=== PATIENT | female | born 1940 | race Caucasian/White ===

== ENCOUNTER → 2023-11-17 10:26 | Outpatient (REF) | payer SELFPAY ==
[2023-11-17 11:07] LABS: HDL Cholesterol 67 mg/dl; LDL Cholesterol, Calculated 52 mg/dl; Total Cholesterol 131 mg/dl (50-199); Triglyceride 61 mg/dl (10-149); Very Low Density Lipoprotein 12 mg/dl (0-30)
== END ==
LOC: OLABN 10:26
PROVIDERS: ATTENDING PHYSICIAN Student in an Organized Health Care Education/Training Program
DX: E78.5 Hyperlipidemia, unspecified (principal)
CPT/HCPCS: 36415; 80061

== ENCOUNTER → 2023-11-24 09:33 | Outpatient (REF) | payer OTHER, SELFPAY ==
[2023-11-24 10:17] LABS: % Basophils 0.8 % (0-2); % Eosinophils 3.8 % (0-6); % Immature Granulocytes 0.3 % (0-0.5); % Lymphocytes 25.3 % (20.5-51.1); % Monocytes 8.6 % (1.7-9.3); % Neutrophils 61.2 % (42.2-75.2); Absolute Eosinophils 0.1 10^3/uL (0-0.7); Absolute Lymphocytes 0.9 10^3/uL (1.2-3.4); Absolute Monocytes 0.3 10^3/uL (0.1-0.6); Absolute Neutrophils 2.3 10^3/uL (1.4-6.5); Hematocrit 36.3 % (37.0-47.0); Hemoglobin 12.3 g/dL (12.0-16.0); Mean Corp Hgb Conc. 33.9 g/dL (33.0-37.0); Mean Corpuscular Hgb 30.5 pg (27.0-31.0); Mean Corpuscular Volume 90.1 fL (81.0-99.0); Nucleated Red Blood Cells % 0 %; Platelet Count 177 10^3/uL (130-400); Red Blood Cell Count 4.03 10^6/uL (4.20-5.40); Red Cell Dist. Width 13.2 % (11.5-14.5); White Blood Cell Count 3.7 10^3/uL (4.8-10.8)
[2023-11-24 11:29] LABS: ALT (SGPT) 20 U/L (0-35); AST (SGOT) 25 U/L (14-36); Albumin 3.7 g/dl (3.5-5.0); Alkaline Phosphatase 89 U/L (38-126); Blood Urea Nitrogen 13 mg/dl (7-17); Calcium 9.1 mg/dl (8.4-10.2); Carbon Dioxide 29 mmol/L (22-30); Chloride 103 mmol/L (98-107); Glucose 99 mg/dl (70-99); Magnesium 2.4 mg/dl (1.6-2.3); Potassium 3.6 mmol/L (3.5-5.1); Sodium 138 mmol/L (135-145); Total Bilirubin 0.4 mg/dl (0.2-1.3); Total Protein 6.2 g/dl (6.3-8.2); eGFR > 60.00
[2023-11-24 12:20] LABS: Vitamin B12 274 pg/ml (239-931)
[2023-11-27 19:26] LABS: Vitamin B6 Results 11.1 nmol/L (20.0-125.0)
== END ==
LOC: OLABN 09:33
PROVIDERS: ATTENDING PHYSICIAN Student in an Organized Health Care Education/Training Program
DX: E52 Niacin deficiency [pellagra] (principal); I25.119 Atherosclerotic heart disease of native coronary artery with unspecified angina pectoris
CPT/HCPCS: 36415; 80053; 82607; 83735; 84207; 85025

== ENCOUNTER → 2023-12-22 11:30 | Outpatient (REF) | payer OTHER, SELFPAY ==
[2023-12-22 12:40] LABS: Blood Urea Nitrogen 17 mg/dl (7-17); Calcium 9.1 mg/dl (8.4-10.2); Carbon Dioxide 28 mmol/L (22-30); Chloride 103 mmol/L (98-107); Glucose 91 mg/dl (70-99); Potassium 4.1 mmol/L (3.5-5.1); Sodium 134 mmol/L (135-145); eGFR > 60.00
== END ==
LOC: OLABN 11:30
PROVIDERS: ATTENDING PHYSICIAN Student in an Organized Health Care Education/Training Program
DX: I1A.0 Resistant hypertension (principal)
CPT/HCPCS: 36415; 80048

== ENCOUNTER 2024-01-28 11:47 | Emergency (ER) | payer MEDICARE, MEDICAID, SELFPAY ==
[2024-01-28 11:48] VITALS: BP 171/85
--- NOTE | 2024-01-28 12:53 | CON.NEURO4 ---
Addendum entered and electronically signed by Suleman Wise MD 01/28/24 15:00:
I saw and evaluated the patient I reviewed the note by Melisa Alvarez and agree with the findings the following comments:
83-year-old woman with a past ministry of previous ischemic stroke producing left-sided weakness, hypertension, chronic macular degeneration, hyperlipidemia, peripheral vascular disease and peripheral neuropathy presented to hospital after finding
of stroke on brain MRI performed for workup of sudden onset hearing loss which occurred around 3 weeks ago.
Patient reports that around 3 weeks ago she had had sudden onset hearing loss or sound like she had a cracking of a tree branch that seem to be in both years and then her right-sided hearing improved but not the left side. Since then she has had
tinnitus in the left ear. She had evaluation by associate financial representative and ENT who had sent her for brain MRI. Patient reports having had hearing checked a couple months previously and seem to have very good hearing in both ears upwards of 95% function
bilaterally.
Patient denies any change in her baseline left-sided weakness from previous ischemic stroke, has had some slow speech, no new headaches. She has been compliant with aspirin with no bleeding issues or side effects. She denies any significant
cardiac history no recent chest pain dyspnea or palpitations
Neurologic examination shows unremarkable mental status, cranial nerves with grossly intact hearing to conversation, extraocular movements normal visual bello normal, smile symmetric no dysarthria.
Motor examination shows weakness and spasticity of the left arm and left leg.
MRI brain reviewed which shows an acute stroke in the right mati and an older more subacute appearing right parietal infarct.
Carotid ultrasound shows 50 to 69% stenosis of the left carotid artery and less than 50% stenosis on the right carotid artery
Assessment: I do suspect a possible vascular cause such as infarction of the cochlea or labyrinthine artery as cause of her sudden onset hearing loss.
Ischemic stroke in the mati could potentially produce hearing loss although the brain MRI supports that the stroke is most likely 7 days old or less, and her hearing problem started 3 weeks ago. He infarct of the mati appears minimally symptomatic
as well as the infarct of the right parietal lobe which appears more distant and greater than probably 2 weeks ago.
Etiology of infarcts is most suspicious for atheroembolic versus cardioembolic mechanism.
Recommendations
-Check lipid panel and hemoglobin A1c
-Continue atorvastatin 40 mg daily
-Placed on DAPT therapy with aspirin and Plavix for 3 weeks and then stop the aspirin after 3 weeks continue on clopidogrel indefinitely
-Discussed my concern that the hearing loss could have actually been caused by stroke to the hearing apparatus and that it may improve with time but may still have significant hearing loss and tinnitus moving forward
-Neurology follow-up as an outpatient in 4 to 6 weeks would obtain outpatient short-term cardiac monitoring to start as well as transthoracic echocardiogram
-Acceptable for discharge home from my perspective given the stroke to the brain is asymptomatic and patient with no new neurologic symptoms that would warrant hospitalization
Original Note:
Documented by User: Melisa Carrizales NP 01/28/24 14:22
Consultation - Neurology 4
-
CONSULTING PHYSICIAN: Rosio Wise MD
REFERRING PHYSICIAN: ER/Dr. Christina
DICTATED BY: ANNALISA Alcazar
DATE/TIME OF REQUEST: 01/28/24
DATE/TIME OF CONSULTATION: 01/28/24
Reason for Consultation: CVA
History of Present Illness:
This is an 83-year-old right-handed female who has presented to the hospital from [facility] with report of subacute vs acute CVA found on MRI brain imaging completed this morning due to acute onset left-sided hearing loss. Patient has a
history of CVA in February 2020 with residual left-sided weakness. She reports waking up from sleep to use the bathroom on 03/01/2020 and she was unable to move her left side. She was unable to get to her phone and her son found her hours later. She was
not a candidate for thrombolytic/intervention. Since then her LUE has been weak/spastic as well as weakness in her LLE. She moved to [facility] at that time and uses a wheelchair for ambulation but she can do short distance transfers. She has
been taking aspirin 81mg daily since then.
Three weeks ago on 01/08/24 she reports sitting chewing on a jolly rancher when suddenly she heard what sounded like a large branch break off of a tree and then she couldn't hear anything in either ear. She started hitting her ears with her hand and
reports that her right side hearing returned but not her left. Since then she reports hearing a ringing sound which has now turned into a constant buzzing sound in her left ear. She also reports feeling lethargic and having slow speech since then.
She reports that she had her hearing checked several months before this event and her hearing was 98% in both ears. She was evaluated by an associate financial representative and ENT since this acute hearing loss, who couldn't find anything wrong with the ear itself, and
sent her for MRI brain imaging for further evaluation. She had the MRI brain completed this morning which demonstrates an acute/subacute right pontine and right parietal ischemic infarct, prompting her to be sent to the ER for further evaluation.
Patient reports a mild pressure headache, fatigue, and slow speech. She denies any dizziness, new vision changes, numbness, new weakness, nausea, chest pain, palpitations. She reports chronic difficulty swallowing pills only and shortness of breath
since she was 49 years old. 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 She denies any recent fevers or illnesses and has not missed any doses of her aspirin.
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
Surgical History: breast cyst removed, b/l cataract removal
Family History: Reviewed and noncontributory.
Social History: Former smoker. Denies alcohol and illicit drug use.
Allergies: No known allergies.
Home Medications: See below.
Review of Symptoms:
Patient denies any fever, chest pain, shortness of breath, GI or symptoms.
�Per the HPI.�All systems are reviewed negative except above.
Physical Exam:
The patient is afebrile, abdomen is nondistended, breathing is unlabored, skin is warm and dry, no edema.
NIH Stroke Scale:
I performed the NIH stroke scale on the patient on 01/28/24 at 1315. The patient scored 6 points on the NIH stroke scale assessment, which were assigned as follows: See below.
Neurologic Examination:
The patient is awake, alert and oriented x 3. She is able to follow commands and answer questions appropriately. There is no aphasia or dysarthria. On cranial nerve assessment, pupils are 3 mm bilateral, round and reactive to light and
accommodation. Visual bello are severely reduced in all quadrants bilaterally at baseline. Extraocular movements are intact. Facial sensations are intact and bilaterally symmetrical, there is a slight left facial droop. Hearing is absent to finger
rub in the left ear only. Tongue palate and uvula are midline. Sternocleidomastoid strengths are reduced on the left. Motor strengths are 5/5 right upper, 3/5 left upper, 5/5 right lower, and 4+/5 left lower extremities on medical research [place]
scale. There is drift in the LUE only. LUE is contracted. No involuntary movement noted. Deep tendon reflexes are 2+ right upper and lower, and 3+ left upper and lower extremities and Babinski is absent bilaterally. Sensations of temperature and
vibration are mildly reduced in distal bilateral lower extremities. There was no extinction noted on double simultaneous stimulation. Coordination is intact by finger to nose on the right, NOEMI LUE.
Lab Results: See below.
Neuro Imaging:
1. MRI Brain 01/28/24: There is a small focus of acute to subacute infarction in the right paramedian mati. Slightly more inferiorly within the right paramedian mati, there is a focal area of CSF signal intensity, which is likely from old infarction.
Small focal area of slightly increased diffusion-weighted signal and questionable minimal decreased ADC signal in the right parietal postcentral gyrus, of moderate suspicion for a small focus of acute to subacute infarction. Areas of old infarction
as described. Moderate diffuse atrophy. Mild to moderate T2 and FLAIR white matter hyperintensities, commonly seen with aging and usually attributed to small vessel ischemic disease. No evidence for vestibular schwannoma. No evidence for
cerebellopontine angle mass. There is no focal area of abnormal enhancement.
Differentials for the patient's presentation include:
1. Subacute/acute right pontine and right parietal ischemic infarct on brain imaging looks recent, at least in the past 10 days and does not explain abrupt hearing loss taking place 3 weeks ago.
2. Possible ischemic stroke to the hearing center of the left ear that cannot be visualized on MRI brain producing hearing change three weeks ago.
3. Old right pontine, left cerebellar, and left lateral ventricle ischemic stroke with residual left-sided weakness.
4. Prediabetes.
Patient has the following risk factors for their symptoms: HTN, HLD, age, hx stroke
IV Tenecteplase/IAT candidacy: Not a candidate due to outside of time window.
Recommendations:
-Initiate DAPT with aspirin 81mg and Plavix 75mg daily for 21 days. After 21 days, discontinue aspirin and continue Plavix 75mg daily only, indefinitely, as this new stroke occurred while on aspirin.
-Goal normotension.
-Carotid ultrasound pending.
-TTE as an outpatient.
-Recommend extended cardiac monitoring as an outpatient.
-LDL goal <70. LDL is 64. Continue home atorvastatin 40mg daily as LDL is at goal.
-Goal normoglycemia, hbA1c is 6.1.
-Provide patient with a stroke education packet. NIHSS and neurological checks per unit guidelines.
-B12 level was 274 in October 2023, rechecking level. Would initiate cyanocobalamin 1000mg daily if level is still <400, patient has neuropathy.
-Patient should follow-up with Neurology as an outpatient, may see the SEWING MACHINE ADJUSTER or one of the physicians.
Discussed patient care with: Dr. Wise, the patient
Vital Signs and Labs
-
Vital Signs and Labs:
Vital Signs
Temp Pulse Resp BP Pulse Ox
97.7 F 70 14 149/85 100
01/28/24 11:48 01/28/24 13:15 01/28/24 13:15 01/28/24 13:03 01/28/24 13:15
Lab Results
01/28/24 13:13
01/28/24 13:13
Sodium 141 mmol/L (135-145) 01/28/24 13:13
Potassium 3.8 mmol/L (3.5-5.1) 01/28/24 13:13
BUN 10 mg/dl (7-17) 01/28/24 13:13
Glucose 116 mg/dl (70-99) H 01/28/24 13:13
Calcium 9.6 mg/dl (8.4-10.2) 01/28/24 13:13
NIH Stroke Score
Subsequent NIH Scale
Date of Subsequent NIH Scale: 01/28/24
Time of Subsequent NIH Scale: 13:15
NIH Stroke Score
Level of Consciousness: 0 - Alert
LOC Questions: 0-Answers both correctly
LOC Commands: 0-Performs both correctly
Best Horizontal Gaze: 0-Normal
Visual Bello: 3=Bilateral hemianopia (macular degeneration at baseline)
Facial Palsy: 1=Minor paralysis (baseline since 2019)
Motor - Right Arm: 0=No drift 10 seconds
Motor - Left Arm: 2=Partial vs. gravity (baseline since 2019)
Motor - Right Le-No drift 5 seconds
Motor - Left Le-No drift 5 seconds
Limb Ataxia: 0-Absent
Sensation: 0-Normal
Best Language: 0-No aphasia
Dysarthria: 0-Normal
Extinction and Inattention: 0-No abnormality
Total Score:: 6
Modified [place] (mRS) Score
Modified [place] Scale (mRS): No significant disability. Able to carry out usual activities.
Score: 1

Documented by User: Suleman Wise MD 01/28/24 14:53
NIH Stroke Score
NIH Stroke Score
Total Score:: 6
Modified [place] (mRS) Score
Score: 1
--- NOTE | 2024-01-28 12:53 | ED.GENMED ---
History of Present Illness
General
Chief Complaint: Abnormal Lab Value
Source: patient and records
Exam Limitations: none
Time Seen by Provider: 01/28/24 12:40
Nursing documentation reviewed up to this point in time: agreed with
Travel History
Have you had any contact with someone who has COVID-19?: No
Do you have any symptoms of coronavirus? Fever > 100 degrees, chills, cough, shortness of breath, sore throat, loss of taste or smell, muscle aches, or headache?: No
History of Present Illness
History of Present Illness:
83-year-old female with a past medical history of hypertension, CVA with residual left-sided weakness who presents to the emergency department from her long-term ([facility]) for evaluation after being found to have abnormal MRI. Patient
reports that while she was eating a gummy bear about 3 weeks ago she had 'a pop' in both of her ears and she said she had acute hearing loss in both ears. She says that she 'tapped on her ears' for a few minutes and she had return of hearing in the
right ear but persistent hearing loss in the left ear. For this reason she saw an ENT in the office (Dr. Ge) and she was ultimately ordered for an MRI as part of her workup. She had the MRI today and it showed a small area concerning for 'acute
to subacute infarction in the right paramedian mati.' She was directed to the emergency room to be assessed. Patient reports that she has had gradual word finding difficulties over the past few months but has had no acute change in her speech or
slurred speech. She denies any acute change in vision has had chronic visual issues related to macular degeneration. She has chronic weakness in the left side since stroke in 2021 but she denies any acute change in her strength either on the left
side over the right side. Denies any sensory changes. She says she has had mild headache intermittently over the past few weeks but denies any other specific complaints. Denies any chest pain or palpitations. No shortness of breath. No nausea
or vomiting. No other complaints.
Review of Systems
Review of Systems
All Other Systems: ROS reviewed and negative except as documented in HPI and ROS
Constitutional: Denies fever
EENT: Reports other (Hearing loss)
Respiratory: Denies trouble breathing
Cardiac: Denies chest pain or palpitations
ABD/GI: Denies abdominal pain, nausea or vomiting
: Denies flank pain
Musculoskeletal: Denies neck pain or back pain
Neurological: Reports headache, weakness (Chronic) and other (Subacute to chronic speech issues); Denies dizzy or numbness
Phy Exam
Physical Exam
Physical Exam:
General: Awake, alert, oriented x3; no acute distress
Head: Normocephalic, atraumatic
Eyes: Conjunctiva normal, EOMI, pupils equal round and reactive to light bilaterally
Throat: Airway intact, handling secretions
Neck: Trachea midline, supple without meningismus
Lungs: Clear to auscultation bilaterally, no wheezing, rales, rhonchi
Heart: Regular rate and rhythm, no murmurs, gallops, or rubs
Abd: Soft, non distended, nontender
Neuro: Cranial nerves intact 2 through 12, speech fluent with no dysarthria or aphasia, she is able to give good effort against gravity left upper and lower extremity, 4/5 strength proximally and distally; 5/5 strength right upper and lower
extremity; sensation intact in all extremities
Skin: no rash
Extremities: No edema in extremities, equal pulses in all extremities
Scores
NIH Stroke Score
Level of Consciousness: 0 - Alert
LOC Questions: 0-Answers both correctly
LOC Commands: 0-Performs both correctly
Best Horizontal Gaze: 0-Normal
Visual Bello: 0=Normal, no visual loss
Facial Palsy: 0=Normal, symmetrical
Motor - Right Arm: 0=No drift 10 seconds
Motor - Left Arm: 1=Drift < 10 seconds
Motor - Right Le-No drift 5 seconds
Motor - Left Le-Drift < 5 seconds
Limb Ataxia: 0-Absent
Sensation: 0-Normal
Best Language: 0-No aphasia
Dysarthria: 0-Normal
Extinction and Inattention: 0-No abnormality
Total Score:: 2
Thrombolytic Contraindication
Inclusion and Exclusion criteria reviewed: Yes
Reasons for NON-Tx with Thrombolytics ABSOLUTE Exclusions: Greater than 4.5 hrs from onset of sxs
Heart Failure Risk
Heart Failure Risk Score: Not Applicable
Heart Score for Chest Pain Patients
STEMI patient?: Not applicable
Withdrawal Assessment of Alcohol
Withdrawal Assessment Completed?: Not applicable
Course
Orders/Labs/Results
Orders:
Orders
01/28/24 12:43
Electrocardiogram (*1) Urgent
Reason for Study: TIA/Stroke
EKG- Treatment ONCE
01/28/24 12:44
US Carotid [US Cerebrovascular] Urgent
Comment:
Reason For Exam: CVA
01/28/24 12:54
Add On- LAB Routine
Tests Added?: Lipid panel, HbA1c
01/28/24 13:13
Cardiovascular Evaluation Urgent
Complete Blood Count/With Diff Urgent
Comprehensive Metabolic Panel Urgent
Ferritin Urgent
Comment: ADD ON
Folate Urgent
Comment: ADD ON
Glycohemoglobin (HgbA1c) Urgent
TSH Reflex To Free T4 Urgent
Comment: ADD ON
Vitamin B12 Urgent
Comment: ADD ON
01/28/24 14:06
Clopidogrel Bisulfate [Plavix] 300 mg PO NOW STA
01/28/24 14:20
Add On- LAB Routine
Tests Added?: folate, ferritin, TSH reflex, B12
01/28/24 14:21
Patient Education As Directed
Type: Stroke education packet
Abnormal Lab Results
01/28/24
13:13
MCHC 32.7 L g/dL
(33.0-37.0)
Lymphocytes % 17.4 L %
(20.5-51.1)
Glucose 116 H mg/dl
(70-99)
Hemoglobin A1c 6.1 H %
(4.0-5.6)
01/28/24 13:13
01/28/24 13:13
Vital Signs
Initial and Last Documented VS:
Initial Vital Signs
Temp Pulse Resp BP Pulse Ox
36.5 C 78 16 171/85 97
01/28/24 11:48 01/28/24 11:48 01/28/24 11:48 01/28/24 11:48 01/28/24 11:48
Last Documented Vital Signs
Temp Pulse Resp BP Pulse Ox
36.5 C 71 14 141/86 95
01/28/24 11:48 01/28/24 14:00 01/28/24 14:00 01/28/24 14:00 01/28/24 14:00
MDM/Problems Addressed
Differential Diagnosis Includes:
CVA
MDM/Problems Addressed:
83-year-old female presents for evaluation after abnormal MRI done as part of outpatient workup for subacute left sided hearing loss. She had MRI done this morning which showed acute to subacute stroke as described above. Aside from loss of
hearing and occasional headache she has not had any new neurologic symptoms. She is hypertensive but has otherwise normal vitals. Physical exam as above. Certainly would not be a candidate for tPA/TNK based on timeline. For this reason no stroke
alert called. Nevertheless we will place an IV check labs including CBC and a CMP, EKG. Will obtain a carotid ultrasound. Discussed case with neurology to perform an assessment.
Neurology assessed patient at bedside: recommended treating with 300 mg Plavix now and starting patient on dual antiplatelet therapy with 81 mg aspirin and 75 mg of Plavix daily x 3 weeks at which point aspirin will be discontinued, Plavix to be
maintained long-term. Will need outpatient echocardiogram and will have neurology follow-up within the next month�neurology to arrange for outpatient echocardiogram. Can be discharged pending carotid ultrasound if no concerning findings.
Ultrasound results noted, reviewed with neurology okay for discharge at this point. I went over the discharge plan and follow-up plan with patient and her son who is now at the bedside. They feel comfortable with this. They have a follow-up
appointment scheduled February 03 with neurology. We spoke about return precautions and all questions answered.
Chronic conditions affecting care:
Prior stroke�higher risk for additional strokes
Acute Exacerbation and/or Progression of Chronic Illness:
Acutely hypertensive
Acute Exacerbation and/or Progression of Chronic Illness: HTN
*Radiology
Radiology exam reviewed: radiology read reviewed (Reviewed outpatient MRI)
*Pulse Oximetry
Patient hypoxic: no
*Critical Care Note
Total Time (30-74mins, 75-104mins- exclusive of procedures): Not Applicable
Data Reviewed
Review of Other/Old Records Reveals: Records and Radiology Studies
Source: patient and records
Patient Management
Discussion with other providers: Fish Agent (Discussed with neurology)
ED Attending Note
-
Portions of this chart may have been created with voice recognition software.� Occasional wrong word or��sound alike� substitutions may have occurred due to the inherent limitations of voice recognition software.
Discharge Plan
Departure
Patient Disposition: Home (Routine Discharge)
Date of Disposition: 01/28/24
Time of Disposition: 15:19
Patient with high blood pressure during this ER visit?: Yes
Discharge Problem:
CVA (cerebral vascular accident)
Instructions: Stroke - Discharge instructions, BLOOD PRESSURE
Prescriptions:
New
aspirin 81 mg tablet,chewable
81 mg PO DAILY 21 Days Qty: 21 0RF
clopidogrel 75 mg tablet
75 mg PO DAILY 30 Days Qty: 30 0RF
No Action
atorvastatin 40 mg Tablet
40 mg PO HS
acetaminophen 325 mg Tablet
650 mg PO Q4HPRN PRN (Reason: mild pain)
gabapentin 600 mg Tablet
600 mg PO HS
tramadol 50 mg Tablet
25 mg PO BID
acetaminophen [Tylenol Extra Strength] 500 mg Tablet
1,000 mg PO HS
famotidine 20 mg Tablet
20 mg PO BID
magnesium hydroxide [Milk of Magnesia] 400 mg/5 mL Suspension
2,400 mg PO HSPRN PRN (Reason: constipation)
gabapentin 800 mg Tablet
400 mg PO BID
baclofen 10 mg Tablet
10 mg PO HS
amlodipine 10 mg Tablet
10 mg PO DAILY
benzonatate 100 mg Capsule
100 mg PO TIDPRN PRN (Reason: cough)
bisacodyl 10 mg Suppository
10 mg FL [id number] PRN (Reason: 3 days no bm, mom no effect)
aspirin 81 mg Tablet,Chewable
81 mg PO DAILY
lisinopril 2.5 mg Tablet
2.5 mg PO DAILY
loratadine 10 mg Tablet
10 mg PO DAILYPRN PRN (Reason: allergies)
Hemorrhoidal Ointment
1 applic FL Q8HPRN PRN (Reason: hemmorrhoids)
Refresh Optive 0.5-0.9 % Drops
2 drp BOTH EYES BID
lidocaine HCl 4 % Cream
1 applic TOPICAL Q4HPRN PRN (Reason: mild pain)
Referrals:
Suleman Wise MD [Active] - Keep scheduled appt (Neurology)
Activity Restrictions/Additional Instructions:
You were seen in the emergency department after an outpatient MRI showed that you had a small stroke. You were seen by the neurologist who recommended starting you on 2 medications: Aspirin 81 mg daily and clopidogrel (Plavix) 75 mg daily. You
should take the aspirin for the next 3 weeks at which point you can stop taking the aspirin. You will continue to take the clopidogrel long-term. You should call the neurology office and they will schedule you for a follow-up appointment within
the next month. They will help to arrange for an outpatient ultrasound of your heart as part of your ongoing assessment for the stroke.
Thank you for visiting the Emergency Department at [facility].
1. Please schedule a follow up appointment as directed. Call first thing tomorrow morning to make an appointment.
2. If indicated, please take your medications as instructed and indicated on discharge paperwork.
3. If any of your symptoms do not improve, or persist, or become more severe within 6-12 hours, please return to the emergency department for further care.
4. Please return to the emergency department if you develop a headache, neck pain/stiffness, fever greater than 100.4F, chest pain, shortness of breath, persistent nausea, vomiting, slurred speech, difficulty walking, numbness/tingling, weakness,
signs of infection or any other symptoms that are worrisome to you.
Please call [phone] if you have any questions.
Interventions
Interventions:
*Risk Screen - Suicide Last Done: 01/28/24 12:57
*General Assessment Last Done: 01/28/24 11:48
*Neglect/Abuse Screening Last Done: 01/28/24 12:57
ED- Fall Risk Assessment Last Done: 01/28/24 12:57
*ED COVID-19 Vaccine History Last Done: 01/28/24 11:48
Discharge Date and Time
Print Language: SAMI
[2024-01-28 13:03] VITALS: BP 149/85
[2024-01-28 13:23] LABS: % Basophils 0.5 % (0-2); % Eosinophils 1.9 % (0-6); % Immature Granulocytes 0.4 % (0-0.5); % Lymphocytes 17.4 % (20.5-51.1); % Monocytes 5.9 % (1.7-9.3); % Neutrophils 73.9 % (42.2-75.2); Absolute Eosinophils 0.1 10^3/uL (0-0.7); Absolute Lymphocytes 1.3 10^3/uL (1.2-3.4); Absolute Monocytes 0.4 10^3/uL (0.1-0.6); Absolute Neutrophils 5.5 10^3/uL (1.4-6.5); Hematocrit 43.4 % (37.0-47.0); Hemoglobin 14.2 g/dL (12.0-16.0); Mean Corp Hgb Conc. 32.7 g/dL (33.0-37.0); Mean Corpuscular Hgb 30.5 pg (27.0-31.0); Mean Corpuscular Volume 93.1 fL (81.0-99.0); Mean Platelet Volume 9.6 fL (7.4-10.4); Nucleated Red Blood Cells % 0 %; Platelet Count 197 10^3/uL (130-400); Red Blood Cell Count 4.66 10^6/uL (4.20-5.40); Red Cell Dist. Width 14.5 % (11.5-14.5); White Blood Cell Count 7.5 10^3/uL (4.8-10.8)
[2024-01-28 13:33] LABS: ALT (SGPT) 24 U/L (0-35); AST (SGOT) 26 U/L (14-36); Albumin 4.6 g/dl (3.5-5.0); Alkaline Phosphatase 120 U/L (38-126); Blood Urea Nitrogen 10 mg/dl (7-17); Calcium 9.6 mg/dl (8.4-10.2); Carbon Dioxide 29 mmol/L (22-30); Chloride 103 mmol/L (98-107); Glucose 116 mg/dl (70-99); Potassium 3.8 mmol/L (3.5-5.1); Sodium 141 mmol/L (135-145); Total Bilirubin 0.6 mg/dl (0.2-1.3); Total Protein 7.5 g/dl (6.3-8.2); eGFR > 60.00
[2024-01-28 13:54] LABS: HDL Cholesterol 91 mg/dl; LDL Cholesterol, Calculated 64 mg/dl; Total Cholesterol 177 mg/dl (50-199); Triglyceride 111 mg/dl (10-149); Very Low Density Lipoprotein 22 mg/dl (0-30)
[2024-01-28 14:00] VITALS: BP 141/86
[2024-01-28 14:00] LABS: Glycohemoglobin (HgbA1c) 6.1 % (4.0-5.6)
[2024-01-28 14:43] VITALS: BP 186/84
[2024-01-28 15:00] VITALS: BP 141/105
[2024-01-28] MEDS: NEURONTIN 400 MG PO (15:34)
[2024-01-28] MEDS: PLAVIX 300 MG PO (15:34)
[2024-01-28 16:07] LABS: TSH Reflex To Free T4 1.08 uIU/ml (0.47-4.68)
[2024-01-28 16:11] LABS: Ferritin 28.3 ng/ml (11.1-264.0)
[2024-01-28 16:42] LABS: Folate 13.7 ng/ml (2.76-20); Vitamin B12 284 pg/ml (239-931)
== END 2024-01-28 16:02 | disposition home or self-care (01) ==
LOC: EMR 11:47
PROVIDERS: EMERGENCY PHYSICIAN Emergency Medicine; FAMILY PHYSICIAN Student in an Organized Health Care Education/Training Program
DX: I63.9 Cerebral infarction, unspecified (principal); I65.23 Occlusion and stenosis of bilateral carotid arteries; I10 Essential (primary) hypertension; E03.9 Hypothyroidism, unspecified; E78.00 Pure hypercholesterolemia, unspecified; H35.30 Unspecified macular degeneration; H54.3 Unqualified visual loss, both eyes; Z79.02 Long term (current) use of antithrombotics/antiplatelets; Z79.82 Long term (current) use of aspirin; Z87.891 Personal history of nicotine dependence
CPT/HCPCS: 99284; 70553; 80053; 80061; 82607; 82728; 82746; 83036; 84443; 85025; 93880; A9575

== ENCOUNTER → 2024-02-17 07:37 | Outpatient (REF) | payer MEDICARE, MEDICAID, SELFPAY | LOC: EMG 07:37 | PROVIDERS: ATTENDING PHYSICIAN Student in an Organized Health Care Education/Training Program | DX: G54.2 Cervical root disorders, not elsewhere classified (principal); R20.0 Anesthesia of skin; G56.02 Carpal tunnel syndrome, left upper limb | CPT/HCPCS: 95886; 95909 ==

== ENCOUNTER → 2024-06-13 10:31 | Outpatient (REF) | payer MEDICARE, MEDICAID, SELFPAY ==
[2024-06-13 11:36] LABS: ALT (SGPT) 14 U/L (0-35); AST (SGOT) 20 U/L (14-36); Albumin 3.6 g/dl (3.5-5.0); Alkaline Phosphatase 79 U/L (38-126); Blood Urea Nitrogen 15 mg/dl (7-17); Calcium 8.8 mg/dl (8.4-10.2); Carbon Dioxide 29 mmol/L (22-30); Chloride 104 mmol/L (98-107); Glucose 77 mg/dl (70-99); Potassium 3.7 mmol/L (3.5-5.1); Sodium 143 mmol/L (135-145); Total Bilirubin 0.4 mg/dl (0.2-1.3); Total Protein 5.8 g/dl (6.3-8.2); eGFR > 60.00
== END ==
LOC: OLABN 10:31
PROVIDERS: ATTENDING PHYSICIAN Student in an Organized Health Care Education/Training Program
DX: I25.119 Atherosclerotic heart disease of native coronary artery with unspecified angina pectoris (principal); E52 Niacin deficiency [pellagra]
CPT/HCPCS: 36415; 80053

== ENCOUNTER → 2024-06-20 07:41 | Outpatient (REF) | payer MEDICARE, MEDICAID, SELFPAY | LOC: RAD 07:41 | PROVIDERS: ATTENDING PHYSICIAN Surgery Vascular Surgery; FAMILY PHYSICIAN Student in an Organized Health Care Education/Training Program | DX: I65.22 Occlusion and stenosis of left carotid artery (principal); I73.9 Peripheral vascular disease, unspecified | CPT/HCPCS: 70496; 70498; 93922; Q9967 ==

== ENCOUNTER 2024-07-22 07:00 | Day surgery (SDC) | payer MEDICAID, OTHER, SELFPAY ==
--- NOTE | 2024-07-22 08:20 | ITS.CL.IMPLP ---
Neuropathologist - Implant Loop
Implant Loop
Procedure Report:
Date of Procedure: July 22, 2024.
Procedure: Insertable Loop Recorder Implant.
Indication: Embolic stroke of unknown source.
Performing physician: Jayy Robert MD, [facility].
Implant: Medtronic; Reveal LINQII; Model# [id number]; Serial# [id number].
Technique: The patient was prepped and draped in the usual fashion. A time-out was performed. No intravenous sedation was administered. Local anesthetic was applied to the left pre-pectoral subcutaneous tissue. Using the insertion kit an incision
was made left of the midline in the fifth intercostal space and the device was implanted subcutaneously and directed towards the nipple. Hemostasis was excellent. The skin was closed with 2-0 Vicrl and steri-strips. The estimated blood loss was less
than 1 ml. There were no complications. No fluoroscopy. R waves measured 0.8 mV and P waves were visible.
Final Programming: Detections: Afib, tachy at 160 bpm, aries at 30 bpm, pause at 3 sec.
Conclusion: Uncomplicated insertable loop implant.
Recommendation: Routine post-insertable loop care. The device is MRI conditional without a waiting period and up to 3 Yulisa.
cc: Jaime Raymond DO and Rishi Neal MD.
== END 2024-07-22 08:30 | disposition home or self-care (01) ==
LOC: CATH 07:00
PROVIDERS: ATTENDING PHYSICIAN Internal Medicine Cardiovascular Disease; FAMILY PHYSICIAN Student in an Organized Health Care Education/Training Program
DX: Z09 Encounter for follow-up examination after completed treatment for conditions other than malignant neoplasm (principal); Z86.73 Personal history of transient ischemic attack (TIA), and cerebral infarction without residual deficits; I10 Essential (primary) hypertension; E78.5 Hyperlipidemia, unspecified; Z87.891 Personal history of nicotine dependence; Z79.02 Long term (current) use of antithrombotics/antiplatelets
CPT/HCPCS: 33285; 93005; C1764

== ENCOUNTER → 2024-09-23 10:52 | Outpatient (REF) | payer MEDICARE, OTHER, SELFPAY ==
[2024-09-23 13:53] LABS: Vitamin B12 209 pg/ml (239-931)
== END ==
LOC: OLABN 10:52
PROVIDERS: ATTENDING PHYSICIAN Student in an Organized Health Care Education/Training Program
DX: E52 Niacin deficiency [pellagra] (principal); I25.119 Atherosclerotic heart disease of native coronary artery with unspecified angina pectoris; D51.9 Vitamin B12 deficiency anemia, unspecified
CPT/HCPCS: 82607

== ENCOUNTER → 2024-12-15 10:43 | Outpatient (REF) | payer MEDICARE, OTHER, SELFPAY ==
[2024-12-15 12:12] LABS: Hematocrit 36.9 % (37.0-47.0); Hemoglobin 12.4 g/dL (12.0-16.0); Mean Corp Hgb Conc. 33.6 g/dL (33.0-37.0); Mean Corpuscular Hgb 31.9 pg (27.0-31.0); Mean Corpuscular Volume 94.9 fL (81.0-99.0); Mean Platelet Volume 10.4 fL (7.4-10.4); Platelet Count 139 10^3/uL (130-400); Red Blood Cell Count 3.89 10^6/uL (4.20-5.40); Red Cell Dist. Width 13.4 % (11.5-14.5); White Blood Cell Count 4.5 10^3/uL (4.8-10.8)
[2024-12-15 12:25] LABS: Erythrocyte Sed Rate 2 mm/hour (0-20)
== END ==
LOC: OLABN 10:43
PROVIDERS: ATTENDING PHYSICIAN Student in an Organized Health Care Education/Training Program
DX: R51.9 Headache, unspecified (principal); G62.9 Polyneuropathy, unspecified
CPT/HCPCS: 85027; 85652

== ENCOUNTER → 2025-01-30 08:56 | Outpatient (REF) | payer MEDICARE, OTHER, SELFPAY | LOC: RAD 08:56 | PROVIDERS: ATTENDING PHYSICIAN Surgery Vascular Surgery; FAMILY PHYSICIAN Student in an Organized Health Care Education/Training Program | DX: I65.22 Occlusion and stenosis of left carotid artery (principal) | CPT/HCPCS: 93880 ==

== ENCOUNTER → 2025-04-18 10:35 | Outpatient (REF) | payer MEDICARE, OTHER, SELFPAY ==
[2025-04-18 11:30] LABS: Hematocrit 38.6 % (37.0-47.0); Hemoglobin 12.6 g/dL (12.0-16.0); Mean Corp Hgb Conc. 32.6 g/dL (33.0-37.0); Mean Corpuscular Volume 95.1 fL (81.0-99.0); Platelet Count 146 10^3/uL (130-400); Red Cell Dist. Width 13.1 % (11.5-14.5)
[2025-04-18 11:47] LABS: AST (SGOT) 18 U/L (14-36); Albumin 3.7 g/dl (3.5-5.0); Alkaline Phosphatase 70 U/L (38-126); Blood Urea Nitrogen 17 mg/dl (7-17); Calcium 9.2 mg/dl (8.4-10.2); Carbon Dioxide 29 mmol/L (22-30); Chloride 106 mmol/L (98-107); Glucose 83 mg/dl (70-99); Potassium 4.5 mmol/L (3.5-5.1); Sodium 139 mmol/L (135-145); Total Protein 5.8 g/dl (6.3-8.2); eGFR 48.94
[2025-04-18 11:48] LABS: ALT (SGPT) 12 U/L (0-35)
== END ==
LOC: OLABN 10:35
PROVIDERS: ATTENDING PHYSICIAN Student in an Organized Health Care Education/Training Program
DX: I69.354 Hemiplegia and hemiparesis following cerebral infarction affecting left non-dominant side (principal)
CPT/HCPCS: 36415; 80053; 85027

== ENCOUNTER → 2025-05-06 13:54 | Outpatient (REF) | payer MEDICARE, OTHER, SELFPAY ==
[2025-05-06 14:27] LABS: Hematocrit 42.4 % (37.0-47.0); Hemoglobin 13.7 g/dL (12.0-16.0); Mean Corp Hgb Conc. 32.3 g/dL (33.0-37.0); Mean Corpuscular Volume 95.3 fL (81.0-99.0); Nucleated Red Blood Cells % 0 %; Platelet Count 148 10^3/uL (130-400); Red Cell Dist. Width 13.0 % (11.5-14.5)
[2025-05-06 14:36] LABS: ALT (SGPT) 16 U/L (0-35); AST (SGOT) 20 U/L (14-36); Albumin 4.4 g/dl (3.5-5.0); Alkaline Phosphatase 90 U/L (38-126); Blood Urea Nitrogen 14 mg/dl (7-17); Calcium 9.2 mg/dl (8.4-10.2); Carbon Dioxide 29 mmol/L (22-30); Chloride 104 mmol/L (98-107); Glucose 102 mg/dl (70-99); Potassium 4.2 mmol/L (3.5-5.1); Sodium 138 mmol/L (135-145); Total Protein 6.9 g/dl (6.3-8.2); eGFR > 60.00
== END ==
LOC: OLABN 13:54
PROVIDERS: ATTENDING PHYSICIAN Student in an Organized Health Care Education/Training Program
DX: R10.0 Acute abdomen (principal)
CPT/HCPCS: 80053; 85025

== ENCOUNTER → 2025-05-16 10:47 | Outpatient (REF) | payer MEDICARE, OTHER, SELFPAY | LOC: HWRAD 10:47 | PROVIDERS: ATTENDING PHYSICIAN Student in an Organized Health Care Education/Training Program; REFERRING PHYSICIAN Obstetrics & Gynecology | DX: N92.5 Other specified irregular menstruation (principal) | CPT/HCPCS: 76830; 76856 ==

== ENCOUNTER 2025-06-07 22:35 | Emergency (ER) | payer MEDICARE, OTHER, SELFPAY ==
[2025-06-07 22:42] VITALS: BP 157/80
[2025-06-07 22:50] VITALS: BP 139/77
[2025-06-07 23:00] VITALS: BP 133/82
[2025-06-07 23:12] LABS: Hematocrit 37.8 % (37.0-47.0); Hemoglobin 12.4 g/dL (12.0-16.0); Mean Corp Hgb Conc. 32.8 g/dL (33.0-37.0); Mean Corpuscular Volume 94.5 fL (81.0-99.0); Nucleated Red Blood Cells % 0 %; Platelet Count 144 10^3/uL (130-400); Red Cell Dist. Width 13.2 % (11.5-14.5)
[2025-06-07 23:18] VITALS: BMI 25.5
[2025-06-07 23:37] LABS: ALT (SGPT) 16 U/L (0-35); AST (SGOT) 25 U/L (14-36); Albumin 4.0 g/dl (3.5-5.0); Alkaline Phosphatase 79 U/L (38-126); Blood Urea Nitrogen 19 mg/dl (7-17); Calcium 8.6 mg/dl (8.4-10.2); Carbon Dioxide 30 mmol/L (22-30); Chloride 106 mmol/L (98-107); Estimated Creatinine Clearance 34 ml/min; Glucose 117 mg/dl (70-99); Potassium 4.0 mmol/L (3.5-5.1); Sodium 139 mmol/L (135-145); Total Protein 6.4 g/dl (6.3-8.2); eGFR 48.94
[2025-06-08] VITALS (9 sets, daily range): BP systolic 95–142; BP diastolic 64–108
[2025-06-08 03:33] LABS: Troponin I < 0.012 ng/ml
--- NOTE | 2025-06-08 05:28 | ED.GENMED ---
History of Present Illness
General
Chief Complaint: Fainting/Passed Out
Source: patient, ambulance crew and [facility]
Exam Limitations: none
Time Seen by Provider: 06/08/25 00:17
Nursing documentation reviewed up to this point in time: agreed with
History of Present Illness
History of Present Illness:
This is an 85-year-old female who resides at a local [facility] who presents after syncopal episode while on the toilet, resulting in a fall and subsequent left ankle pain. The patient describes a history of similar episodes of passing out during
bowel movements. She has a prior history of a stroke with resultant left-sided weakness and uses a wheelchair for mobility. Chronic resident of a local [facility]. Upon EMS arrival patient was reportedly pale and diaphoretic but no report of
hypotension. She does not recall the fall. She denies headache, no neck nor back pain, no abdominal pain, no nausea nor vomiting, no diarrhea or constipation. She denies dizziness nor lightheadedness nor palpitations. No new weakness. Denies
numbness. She denies urinary incontinence.
According to EMS and [facility] records patient suffered a single syncopal episode while on the toilet. There was no recurrent syncope. She does note similar episodes of syncope. She has a loop recorder in place.
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 Evaluated by neurology at that time. MRI showed acute pontine lacunar infarct. Placed on low-dose aspirin and Plavix for 3 weeks,
thereafter aspirin discontinued and recommended Plavix continuously. There has been no recurrent similar episodes and she remains on Plavix.
Past History
Past History
ED Past Medical History: CVA (2021- residual left-sided weakness. Wheelchair-bound. 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
Social History
Tobacco: Non-smoker
Alcohol: Former
Personal:
Living: [facility]
Family History
Family History: Other (Noncontributory)
Phy Exam
Physical Exam
Physical Exam:
GENERAL: 85-year-old female appears her stated age, appears somewhat chronically debilitated. She is awake and alert, pleasant, appears in no acute distress.
EYE: pupils equal and reactive. anicteric. The head is normocephalic, atraumatic.
NECK: Supple, nontender, no meningismus, no significant adenopathy.
ENT: posterior pharynx is clear, oral mucosa is moist. TM clear b/l, nares patent.
CARDIAC: Regular rate and rhythm. no murmur.
LUNGS: Clear breath sounds bilaterally, no acute respiratory distress, no wheezes/rales/rhonchi
ABDOMEN: Soft, nondistended, without focal tenderness, no r/g, no cvat. normoactive BS.
BACK: No midline bony tenderness.
NEUROLOGICAL: Alert and oriented x3, motor strength 5/5 bilateral upper extremities, plus 4 out of 5 left lower extremity. 5/5 right lower extremity. Gross sensation intact.
SKIN: Warm and dry, normal color, skin intact. No rash.
MUSCULOSKELETAL: No C/C/E. peripheral pulses are full and equal b/l. Moderate tenderness about the left ankle with mild soft tissue swelling, mild/early ecchymosis medial as well as lateral malleolus of the left ankle. Moderately restricted range
of motion related to pain. There is no tenderness to the foot nor lower leg nor hip nor knee. No crepitus nor gross deformity.
PSYCH: Normal and appropriate interaction.
Course
Orders/Labs/Results
Orders:
Orders
06/07/25 22:54
Electrocardiogram (*1) Urgent
Reason for Study: Syncope
06/07/25 22:[address] [CT Head W/o Iv Contrast] Urgent
Comment:
Reason For Exam: unwitnessed fall
06/07/25 22:56
EKG- Treatment ONCE
06/07/25 22:57
Cervical Spine wo Contrast CT [CT Cervical Spine W/o Iv Contr] Urgent
Comment:
Reason For Exam: unwitnessed fall
06/07/25 23:04
Alcohol Urgent
Complete Blood Count/With Diff Urgent
Comprehensive Metabolic Panel Urgent
06/07/25 23:08
Ankle, left 3 view CR [CR Ankle - Left Min 3 Views ] Urgent
Comment:
Reason For Exam: left ankle pain after unwitnessed fall
06/08/25 02:28
Add On- LAB Urgent
Tests Added?: alcohol level
06/08/25 02:47
Troponin I Urgent
06/08/25 05:26
Splints/Slings/Crut- Treatment ONCE
Crutches: No
Location: Left
Type of Splint: Short Leg
06/08/25 05:27
0.9% Sodium Chloride 1000 ml [Nss] 1,000 ml IV BOLUS
Abnormal Lab Results
06/07/25
23:04
RBC 4.00 L 10^6/uL
(4.20-5.40)
MCHC 32.8 L g/dL
(33.0-37.0)
Absolute Neuts (auto) 7.7 H 10^3/uL
(1.4-6.5)
Absolute Lymphs (auto) 0.7 L 10^3/uL
(1.2-3.4)
Neutrophils % 85.4 H %
(42.2-75.2)
Lymphocytes % 8.1 L %
(20.5-51.1)
BUN 19 H mg/dl
(7-17)
Creatinine 1.1 H mg/dL
(0.6-1.0)
Glucose 117 H mg/dl
(70-99)
06/07/25 23:04
06/07/25 23:04
Vital Signs
Initial and Last Documented VS:
Initial Vital Signs
Pulse Resp BP Pulse Ox
72 16 157/80 98
06/07/25 22:42 06/07/25 22:42 06/07/25 22:42 06/07/25 22:42
Last Documented Vital Signs
Temp Pulse Resp BP Pulse Ox
97.7 F 68 14 133/82 95
06/07/25 23:18 06/07/25 23:15 06/07/25 23:15 06/07/25 23:00 06/07/25 23:15
MDM/Problems Addressed
Differential Diagnosis Includes:
Differential diagnosis includes, in no particular order and is not limited to:
Vasovagal syncope
Orthostatic hypotension
Cardiac arrhythmia
TIA
OH
Gastrointestinal bleed
Hypoglycemia
Dehydration
Medication side effect
MDM/Problems Addressed:
Syncope with fall
Left ankle pain
Patient has had no recurrent episodes of syncope. She remains hemodynamically stable.
Labs thus far unremarkable save for minimally elevated BUN and creatinine of 19/1.1. Mild uptrend from previous. Normal CBC.
EKG shows normal sinus rhythm at 68, borderline incomplete right bundle branch block, no acute ST-T wave abnormalities. Similar and unchanged from previous July 2024.
Monitor continues to show normal sinus rhythm without ectopy.
Patient has a loop recorder in place. Will interrogate to assess for potential arrhythmia.
CT of the head and cervical spine are unremarkable. No fracture, no acute intracranial findings.
Left ankle x-ray shows subtle nondisplaced fracture distal fibula. Ankle mortise intact.
Will check troponin.
Left ankle will be placed in a posterior splint.
Will gently hydrate with IV fluids.
Will continue playground monitor.
Chronic conditions affecting care:
History of stroke with left-sided weakness
Hearing loss
Chronic conditions affecting care: HTN and Neurological disorder
*Radiology
Radiology exam reviewed: preliminary read by ED provider (Left ankle x-ray shows subtle nondisplaced fracture distal fibula.) and radiology read reviewed (CT of the head and cervical spine are unremarkable. No acute traumatic findings.)
*Pulse Oximetry
SaO2: 95
Oxygen Mode of Delivery: Room air
Patient hypoxic: no
*EKG
Interpreted by ED Provider?: Yes
Interpretation: normal
Comparison EKG: no changes
Rate: normal
Rhythm: sinus
[place]: normal axis
Interval: normal interval
QRS Pattern: right bundle branch block (Borderline incomplete right bundle branch block)
Ischemia: no ischemia
*Warehouse Shipping Receiving Clerk Interpretation
Rate: normal
Interpretation: normal
Rhythm: sinus
*Critical Care Note
Total Time (30-74mins, 75-104mins- exclusive of procedures): Not Applicable
Update Note
Update Note:
05:45
Loop recorder interrogated. No arrhythmia identified.
Troponin is negative.
Plan as above.
OCL posterior splint to left ankle/lower leg.
Will gently hydrate with IV fluids.
Will plan for [facility] back to [facility], continue nonweightbearing, patient is wheelchair-bound.
Will refer to orthopedics on an outpatient basis.
Recommend follow-up with cardiology as well.
ED Attending Note
-
Portions of this chart may have been created with voice recognition software.� Occasional wrong word or��sound alike� substitutions may have occurred due to the inherent limitations of voice recognition software.
Discharge Plan
Departure
Patient Disposition: Jail/SNF
Date of Disposition: 06/08/25
Time of Disposition: 05:45
Patient with high blood pressure during this ER visit?: No
Condition: Good
Discharge Problem:
Syncope, Closed left ankle fracture
Instructions: Syncope (Fainting) (DC), Ankle Fracture ED, How to care for a splint
Prescriptions:
No Action
atorvastatin 40 mg Tablet
40 mg PO HS
acetaminophen 325 mg Tablet
650 mg PO Q4HPRN PRN (Reason: mild pain)
gabapentin 600 mg Tablet
400 mg PO HS
tramadol 50 mg Tablet
25 mg PO BID
acetaminophen [Tylenol Extra Strength] 500 mg Tablet
1,000 mg PO HS
famotidine 20 mg Tablet
20 mg PO BID
magnesium hydroxide [Milk of Magnesia] 400 mg/5 mL Suspension
2,400 mg PO HSPRN PRN (Reason: constipation)
gabapentin 800 mg Tablet
300 mg PO BID
baclofen 10 mg Tablet
10 mg PO HS
amlodipine 10 mg Tablet
10 mg PO DAILY
benzonatate 100 mg Capsule
100 mg PO TIDPRN PRN (Reason: cough)
bisacodyl 10 mg Suppository
10 mg DE [id number] PRN (Reason: 3 days no bm, mom no effect)
lisinopril 2.5 mg Tablet
2.5 mg PO DAILY
Hemorrhoidal Ointment
1 applic DE Q8HPRN PRN (Reason: hemmorrhoids)
lidocaine HCl 4 % Cream
1 applic TOPICAL Q4HPRN PRN (Reason: mild pain)
clopidogrel 75 mg tablet
75 mg PO DAILY 30 Days Qty: 30 0RF
Referrals:
Rishi Neal MD [Active, Cardiology] - Call in 1-3 days for appt
Jaime Raymond DO [Family Provider, Family Practice] - Call in 1-3 days for appt
David Coleman MD [Active, Orthopedics] - Call in 1-3 days for appt
Activity Restrictions/Additional Instructions:
Left ankle x-ray shows subtle fracture distal fibula, nondisplaced.
Bri has been placed in a splint. She must remain nonweightbearing, wheelchair-bound.
Recommend Tylenol as needed for pain, local ice to ankle over the splint.
Follow-up with orthopedics for further evaluation, recheck.
Loop recorder interrogated, no evidence of cardiac arrhythmia. Due to episode of syncope/passing out, recommend follow-up with her two needle machine operator.
Laboratory studies reveal very mild dehydration which may have contributed to syncope. Recommend encouraging fluids/staying well-hydrated on a daily basis.
Interventions
Interventions:
*Risk Screen - Suicide Last Done: 06/07/25 23:07
*General Assessment Last Done: 06/07/25 23:07
*Neglect/Abuse Screening Last Done: 06/07/25 23:07
*ED- Fall Risk Assessment Last Done: 06/07/25 23:07
*ED COVID-19 Vaccine History Last Done: 06/07/25 23:07
*ED Influenza Vaccine History Last Done: 06/07/25 23:07
ED- Cardiac Assessment Last Done: 06/08/25 01:11
ED- Neurological Assessment Last Done: 06/08/25 01:11
Discharge Date and Time
Print Language: KOREAN
[2025-06-08] MEDS: NSS 1000 IV (06:07)
--- NOTE | 2025-06-08 09:14 | EDRN ---
Report given to Acute Care ambulance staff and to CINTHYA Medina at [facility].
== END 2025-06-08 09:15 ==
LOC: EMR 22:35
PROVIDERS: Student in an Organized Health Care Education/Training Program; EMERGENCY PHYSICIAN Emergency Medicine; FAMILY PHYSICIAN Student in an Organized Health Care Education/Training Program
DX: R55 Syncope and collapse (principal); S82.892A Other fracture of left lower leg, initial encounter for closed fracture; W18.11XA Fall from or off toilet without subsequent striking against object, initial encounter; E78.00 Pure hypercholesterolemia, unspecified; I10 Essential (primary) hypertension; I45.10 Unspecified right bundle-branch block; I69.354 Hemiplegia and hemiparesis following cerebral infarction affecting left non-dominant side; Z99.3 Dependence on wheelchair
CPT/HCPCS: 29515; 99284; 96360; 70450; 72125; 73610; 80053; 82077; 84484; 85025; 93005

== ENCOUNTER 2025-06-19 13:35 | Emergency (ER) | payer MEDICARE, OTHER, SELFPAY ==
[2025-06-19 13:56] VITALS: BP 192/86; BMI 24.7
[2025-06-19 14:00] LABS: Hematocrit 40.9 % (37.0-47.0); Hemoglobin 13.6 g/dL (12.0-16.0); Mean Corp Hgb Conc. 33.3 g/dL (33.0-37.0); Mean Corpuscular Volume 96.5 fL (81.0-99.0); Nucleated Red Blood Cells % 0 %; Platelet Count 197 10^3/uL (130-400); Red Cell Dist. Width 13.0 % (11.5-14.5); Urine Character Clear (Clear)
[2025-06-19 14:07] LABS: Urine Red Blood Cell 0-2 /HPF (0-2)
--- NOTE | 2025-06-19 14:11 | ED.GENMED ---
History of Present Illness
General
Chief Complaint: Change in Mental Status
Time Seen by Provider: 06/19/25 13:45
History of Present Illness
History of Present Illness:
85-year-old female with history of CVA with chronic left-sided weakness and recent syncopal episode with left distal fibular fracture and cam boot presenting from nursing facility for concern of lethargy. Patient arrives from [facility]. In
discussion with nurse at [facility], patient has been more 'lethargic 'since she broke her ankle. 3 days ago she refused physical therapy which nurse that was unlike her. Today she refused the nurse wrapping her leg and appeared to be more
tired, however was still appropriately responding. Prior to arrival physical therapy went into the room and said that she was not responding. Do note that she had tramadol around 10 AM. Patient on arrival denies acute complaints. She notes that
she feels tired. Denies any depressive thoughts. Denies chest pain, difficulty breathing, abdominal pain, recent fever.
No additional history obtained at this time
Past History
Past History
ED Past Medical History: CVA (2021- residual left-sided weakness. Wheelchair-bound. 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
Social History
Tobacco: Non-smoker
Alcohol: Former
Personal:
Living: [facility]
Family History
Family History: Other (Noncontributory)
Phy Exam
Physical Exam
Physical Exam:
General: Well-appearing, no clinical signs of dehydration, nontoxic and in no acute distress
HEENT: protecting airway, pupils equal and reactive, extraocular movements intact
Neck: appears supple
CV: Normal heart rate, regular rhythm
Resp: No accessory muscle use, no increased work of breathing, lungs clear to auscultation bilaterally
Abd: Soft and non-distended, no tenderness to palpation
Extremities: No deformities, no swelling, left cam boot in place to lower extremity. Chronic weakness to left upper and lower extremity, 4/5, which patient notes is chronic
Neuro: alert and oriented, no focal neurologic deficit.
: deferred
Rectal: deferred
Psych: Normal affect
Skin: Intact
Course
Orders/Labs/Results
Orders:
Orders
06/19/25 13:40
Electrocardiogram (*1) Urgent
Reason for Study: Other
Other Reason for Exam: change in mental status
06/19/25 13:41
EKG- Treatment ONCE
06/19/25 13:52
Complete Blood Count/With Diff Urgent
Comprehensive Metabolic Panel Urgent
Lipase Urgent
Magnesium Urgent
Urinalysis Reflex To Culture Urgent
Date Specimen was Collected: 06/19/25
Time Specimen was Collected: 13:49
Urine Microscopic Reflex Cult Urgent
06/19/25 13:57
CT Head W/o Iv Contrast Urgent
Comment:
Reason For Exam: AMS
Abnormal Lab Results
06/19/25
13:52
WBC 4.7 L 10^3/uL
(4.8-10.8)
MCH 32.1 H pg
(27.0-31.0)
Absolute Lymphs (auto) 0.9 L 10^3/uL
(1.2-3.4)
Lymphocytes % 18.2 L %
(20.5-51.1)
Glucose 108 H mg/dl
(70-99)
Urine Bacteria (Reflex) Few A
(Negative)
Urine Albumin (Reflex) 1+ A
(Neg - Trace)
06/19/25 13:52
06/19/25 13:52
Vital Signs
Initial and Last Documented VS:
Initial Vital Signs
Temp Pulse Resp BP Pulse Ox
98.6 F 76 18 192/86 96
06/19/25 13:56 06/19/25 13:56 06/19/25 13:56 06/19/25 13:56 06/19/25 13:56
Last Documented Vital Signs
Temp Pulse Resp BP Pulse Ox
98.6 F 72 16 192/86 94
06/19/25 13:56 06/19/25 14:00 06/19/25 14:00 06/19/25 13:56 06/19/25 14:12
MDM/Problems Addressed
MDM/Problems Addressed:
85-year-old female with history of prior history of stroke with left-sided weakness presenting to the emergency department for concern of increased lethargy. Vital signs on arrival are significant for high blood pressure.
On exam, patient is resting comfortably, no acute distress. Patient currently denying any acute medical complaints. She does appear somewhat tired, however is awake, alert, nontoxic in appearance. Unremarkable cardiac, pulmonary, abdominal exam,
neurologic exam. Known chronic weakness to the left upper and lower extremity. Cam boot is in place without significant swelling left lower extremity. Unclear etiology of patient's [facility] concerns. Will screen with laboratory analysis and
CT brain imaging given history of stroke. Blood pressure noted to be elevated, however again patient asymptomatic without hypertensive urgency or emergency. Will continue to closely monitor
15:30 -patient's labs are unremarkable. CT brain is unremarkable. Urine without any sign of infection. Blood pressure has improved without intervention. On reassessment, patient continues to deny any acute complaints. She notes that she was
tired because she has not slept in 2 days due to pain in her foot. Cam boot was removed, some ecchymosis to the medial aspect, otherwise no significant swelling, pulses intact. Patient declining any pain medication at this time. At this time she
remains hemodynamically stable without acute complaints and neurologically intact. Feel stable for discharge back to nursing facility
*Pulse Oximetry
SaO2: 94
Oxygen Mode of Delivery: Room air
Patient hypoxic: no
*EKG
Interpreted by ED Provider?: Yes
EKG Intrepretation Date: 06/19/25
EKG Intrepretation Time: 14:16
Interpretation: normal
Comparison EKG: no changes (06/07/25)
Heart Rate: 74
Rate: normal
Rhythm: sinus
[place]: normal axis
Interval: normal interval
QRS Pattern: normal QRS
Ischemia: no ischemia
*Critical Care Note
Total Time (30-74mins, 75-104mins- exclusive of procedures): Not Applicable
ED Attending Note
-
Portions of this chart may have been created with voice recognition software.� Occasional wrong word or��sound alike� substitutions may have occurred due to the inherent limitations of voice recognition software.
Discharge Plan
Departure
Prescriptions:
No Action
atorvastatin 40 mg Tablet
40 mg PO HS
acetaminophen 325 mg Tablet
650 mg PO Q4HPRN PRN (Reason: mild pain)
gabapentin 600 mg Tablet
400 mg PO HS
tramadol 50 mg Tablet
25 mg PO BID
acetaminophen [Tylenol Extra Strength] 500 mg Tablet
1,000 mg PO HS
famotidine 20 mg Tablet
20 mg PO BID
magnesium hydroxide [Milk of Magnesia] 400 mg/5 mL Suspension
2,400 mg PO HSPRN PRN (Reason: constipation)
gabapentin 800 mg Tablet
300 mg PO BID
baclofen 10 mg Tablet
10 mg PO HS
amlodipine 10 mg Tablet
10 mg PO DAILY
bisacodyl 10 mg Suppository
10 mg NC [id number] PRN (Reason: 3 days no bm, mom no effect)
lisinopril 2.5 mg Tablet
2.5 mg PO DAILY
lidocaine HCl 4 % Cream
1 applic TOPICAL Q4HPRN PRN (Reason: mild pain)
clopidogrel 75 mg tablet
75 mg PO DAILY 30 Days Qty: 30 0RF
Referrals:
UNKNOWN - PT DOES,NOT KNOW [Family Provider]
Interventions
Interventions:
*Risk Screen - Suicide Last Done: 06/19/25 13:56
*General Assessment Last Done: 06/19/25 13:56
*Neglect/Abuse Screening Last Done: 06/19/25 13:56
*ED- Fall Risk Assessment Last Done: 06/19/25 13:56
*ED COVID-19 Vaccine History Last Done: 06/19/25 13:56
*ED Influenza Vaccine History Last Done: 06/19/25 13:56
ED- Pulmonary Assessment Last Done: 06/19/25 13:56
ED-Psychological Assessment Last Done: 06/19/25 13:56
ED- Neurological Assessment Last Done: 06/19/25 13:56
ED- Cardiac Assessment Last Done: 06/19/25 13:56
ED Swallowing Screen Last Done: 06/19/25 13:56
Discharge Date and Time
Print Language: ROMANIAN
[2025-06-19 14:15] LABS: ALT (SGPT) 14 U/L (0-35); AST (SGOT) 19 U/L (14-36); Albumin 4.0 g/dl (3.5-5.0); Alkaline Phosphatase 113 U/L (38-126); Blood Urea Nitrogen 12 mg/dl (7-17); Calcium 9.0 mg/dl (8.4-10.2); Carbon Dioxide 29 mmol/L (22-30); Chloride 104 mmol/L (98-107); Estimated Creatinine Clearance 47 ml/min; Glucose 108 mg/dl (70-99); Lipase 76 U/L (23-300); Magnesium 2.3 mg/dl (1.6-2.3); Potassium 4.0 mmol/L (3.5-5.1); Sodium 138 mmol/L (135-145); Total Protein 6.8 g/dl (6.3-8.2); eGFR > 60.00
[2025-06-19 15:25] VITALS: BP 163/87
[2025-06-19 15:44] VITALS: BP 163/87
--- NOTE | 2025-06-19 15:55 | EDRN ---
this RN called Glenna Tavarez to give verbal report at [phone] and the front office secretary he transferred this RN to the floor where this RN could give report and there was no answer
[2025-06-19 16:00] VITALS: BP 169/65
[2025-06-19 16:41] VITALS: BP 183/147
[2025-06-19 16:46] VITALS: BP 132/84
== END 2025-06-19 17:36 | disposition home or self-care (01) ==
LOC: EMR 13:35
PROVIDERS: EMERGENCY PHYSICIAN Student in an Organized Health Care Education/Training Program
DX: R41.82 Altered mental status, unspecified (principal); I10 Essential (primary) hypertension; E78.00 Pure hypercholesterolemia, unspecified; I69.354 Hemiplegia and hemiparesis following cerebral infarction affecting left non-dominant side; I73.9 Peripheral vascular disease, unspecified; H91.92 Unspecified hearing loss, left ear; G62.9 Polyneuropathy, unspecified; Z79.02 Long term (current) use of antithrombotics/antiplatelets; Z99.3 Dependence on wheelchair
CPT/HCPCS: 99284; 70450; 80053; 81003; 81015; 83690; 83735; 85025; 93005